=== PATIENT | female | born 1940 | race Caucasian/White ===

== ENCOUNTER → 2016-12-19 | Outpatient (CLI) | payer OTHER | END | disposition home or self-care (01) | LOC: RAD 15:37 | PROVIDERS: ATTEND Family Medicine | DX: Z45.2 Encounter for adjustment and management of vascular access device (principal); L03.116 Cellulitis of left lower limb | CPT/HCPCS: 36569; 76937; 77001; C1751 ==

== ENCOUNTER 2017-05-22 18:27 | Emergency (ER) | payer OTHER ==
[~2017-05-22] VITALS: Ht 167.6 cm; Wt 74.2 kg
[2017-05-22 21:38] VITALS: BP 148/76
== END 2017-05-22 21:41 | disposition home or self-care (01) ==
LOC: ED 21:05
DX: Z45.2 Encounter for adjustment and management of vascular access device (principal)
CPT/HCPCS: 99282

== ENCOUNTER → 2017-05-26 | Outpatient (CLI) | payer OTHER ==
[~2017-05-26] MED LIST: LIDOCAINE 1%, 20ML ONE
== END | disposition home or self-care (01) ==
LOC: RAD 08:17
PROVIDERS: ATTEND Internal Medicine Geriatric Medicine
DX: Z45.2 Encounter for adjustment and management of vascular access device (principal)
CPT/HCPCS: 36589; 77001; J3490

== ENCOUNTER → 2017-09-14 | Outpatient (CLI) | payer OTHER | END | disposition home or self-care (01) | LOC: RAD 14:11 | PROVIDERS: ATTEND Registered Nurse | DX: M48.56XA Collapsed vertebra, not elsewhere classified, lumbar region, initial encounter for fracture (principal); M51.16 Intervertebral disc disorders with radiculopathy, lumbar region; M48.061 Spinal stenosis, lumbar region without neurogenic claudication | CPT/HCPCS: 72110; 72148 ==

== ENCOUNTER 2017-12-21 15:36 | Inpatient (IN) | payer OTHER ==
[~2017-12-21] VITALS: Ht 170.2 cm; Wt 71.5 kg
[~2017-12-21 15:36] MED LIST changes: +ATOR-2 PO; +DOCU100T3 PO; +FA/V1TAB PO; +FURO20TA3 PO; +GABA300C10 PO; +IPRA3AMP NPPB; -LIDOCAINE 1%, 20ML ONE; +OMEG1CAP57 PO; +OMEP-110 PO; +ONDA4TAB10 PO; +OXYC10TA6 PO; +PIOG30TA3 PO; +SUCR1TAB PO
[2017-12-21] MEDS ORDERED: SODIUM CHLORIDE FLUSH 10ML SYR IVF ONE (16:00)
[2017-12-21 16:37] LABS: INTERNATIONAL NORMALIZED RATIO 1.12 (0.93-1.1); PROTHROMBIN TIME 11.5 Seconds (9.6-11.5)
[2017-12-21 16:42] LABS: ALBUMIN 3.1 g/dL (3.4-5.0); ANION GAP 9 mmol/L (5-15); CALCIUM 8.5 mg/dL (8.5-10.1); CHLORIDE 100 mmol/L (98-107); CREATININE 3.24 mg/dL (0.55-1.02)
[2017-12-21 16:46] LABS: MEAN CORPUSCULAR HEMOGLOBIN 26.6 pg (27.0-34.8); MEAN CORPUSCULAR HGB CONC 31.7 g/dL (32.4-35.8); MEAN PLATELET VOLUME 10.2 fL (7.4-10.4); PLATELET COUNT 235 x10^3/uL (130-400); RED BLOOD COUNT 2.59 x10^6/uL (3.82-5.3); RED CELL DISTRIBUTION WIDTH 20.5 % (9.6-15.2)
[2017-12-21 16:47] LABS: ALANINE AMINOTRANSFERASE 16 U/L (12-78); ALKALINE PHOSPHATASE 223 U/L (45-117); BILIRUBIN,TOTAL 0.3 mg/dL (0.2-1.0); TOTAL PROTEIN 7.7 g/dL (6.4-8.2); TROPONIN I 0.058 ng/mL (0.000-0.045)
[2017-12-21 16:55] LABS: HEMOGRAM NOTE RECHECKED
[2017-12-21 17:10] LABS: MD YES
[2017-12-21 17:15] LABS: BASOS#(MANUAL) 0.23 x10^3/uL (0-0.1); BASOS% (MANUAL) 3 % (0-1); EOS#(MANUAL) 2.25 x10^3/uL (0.0-0.4); EOS% (MANUAL) 30 % (1-7); LYMPH#(MANUAL) 0.68 x10^3/uL (1-3.4); LYMPHS% (MANUAL) 9 % (22-44); MONOS% (MANUAL) 4 % (2-9); SEG#(MANUAL) 4.05 x10^3/uL (1.8-6.8); SEGS% (MANUAL) 54 % (42-75)
[2017-12-21 17:19] LABS: HYPOCHROMIA 1+; MICROCYTOSIS 1+; OVALOCYTES 1+; POLYCHROMASIA 1+
[2017-12-21 17:22] LABS: <PLATELET ESTIMATE> ADEQUATE; LARGE PLATELETS 1+
[2017-12-21] MEDS ORDERED: BISACODYL 10 MG SUPP PR PRN (18:00)
[2017-12-21] MEDS ORDERED: ACETAMINOPHEN 325 MG TABLET PO PRN (18:00)
[2017-12-21] MEDS ORDERED: ALBUTEROL/IPRATROPIUM 2.5MG/0.5MG, 3 ML NPPB PRN (18:00)
[2017-12-21] MEDS ORDERED: POLYETHYLENE GLYCOL 17 GM PACKET PO PRN (18:00)
[2017-12-21] MEDS: GABAPENTIN 100 MG CAPSULE PO SCH ×2 (18:00→22:05)
[2017-12-21] MEDS ORDERED: ONDANSETRON ODT 4 MG PO PRN (18:00)
[2017-12-21 19:45] VITALS: BP 94/51
[2017-12-21 20:36] VITALS: BP 76/34
[2017-12-21 20:56] VITALS: BP 95/46
[2017-12-21] MEDS ORDERED: ATORVASTATIN 80 MG TABLET PO SCH (21:00)
[2017-12-21] MEDS ORDERED: FUROSEMIDE 20 MG TABLET PO SCH (21:00)
[2017-12-21] MEDS: SODIUM CHLORIDE FLUSH 10ML SYR IVF SCH (22:05)
[2017-12-21 22:46] LABS: TROPONIN I 0.067 ng/mL (0.000-0.045)
[2017-12-21 23:00] VITALS: BP 103/54
[2017-12-21 23:01] VITALS: BP 94/48
[2017-12-21 23:47] VITALS: BP 111/55
[2017-12-22 00:09] VITALS: BP 107/57
[2017-12-22 01:56] VITALS: BP 121/61
[2017-12-22 02:23] VITALS: BP 107/55
[2017-12-22 05:00] LABS: MEAN CORPUSCULAR HGB CONC 32.9 g/dL (32.4-35.8); MEAN CORPUSCULAR VOLUME 85.1 fL (80-100); MEAN PLATELET VOLUME 10.3 fL (7.4-10.4); PLATELET COUNT 198 x10^3/uL (130-400); RED BLOOD COUNT 3.02 x10^6/uL (3.82-5.3); RED CELL DISTRIBUTION WIDTH 18.8 % (9.6-15.2)
[2017-12-22 05:05] LABS: CALCIUM 8.5 mg/dL (8.5-10.1); CHLORIDE 102 mmol/L (98-107)
[2017-12-22 05:14] LABS: ALANINE AMINOTRANSFERASE 15 U/L (12-78); ALBUMIN 2.9 g/dL (3.4-5.0); ALKALINE PHOSPHATASE 194 U/L (45-117); ANION GAP 9 mmol/L (5-15); BILIRUBIN,TOTAL 0.8 mg/dL (0.2-1.0); CREATININE 4.02 mg/dL (0.55-1.02); TOTAL PROTEIN 7.2 g/dL (6.4-8.2); TROPONIN I 0.069 ng/mL (0.000-0.045)
[2017-12-22 05:48] LABS: MD YES
[2017-12-22 05:50] LABS: EOS% (MANUAL) 40 % (1-7); LYMPH#(MANUAL) 1.44 x10^3/uL (1-3.4); LYMPHS% (MANUAL) 18 % (22-44); MONOS#(MANUAL) 0.24 x10^3/uL (0.3-2.7); MONOS% (MANUAL) 3 % (2-9); SEG#(MANUAL) 3.12 x10^3/uL (1.8-6.8); SEGS% (MANUAL) 39 % (42-75)
[2017-12-22 05:51] LABS: <PLATELET ESTIMATE> ADEQUATE; HYPOCHROMIA 1+; LARGE PLATELETS 1+; OVALOCYTES 1+; POLYCHROMASIA 1+
[2017-12-22 06:51] VITALS: BP 112/58
[2017-12-22] MEDS: GABAPENTIN 100 MG CAPSULE PO SCH ×2 (08:35→15:55)
[2017-12-22] MEDS: SODIUM CHLORIDE FLUSH 10ML SYR IVF SCH (08:35)
[2017-12-22] MEDS ORDERED: SUCRALFATE 1 GM TABLET PO SCH (09:00)
[2017-12-22] MEDS ORDERED: SENNA/DOCUSATE TABLET PO SCH (09:00)
[2017-12-22] MEDS ORDERED: DOCUSATE 100 MG CAPSULE PO SCH (09:00)
[2017-12-22] MEDS ORDERED: OMEGA-3/FISH OIL CAPSULE PO SCH (09:00)
[2017-12-22 12:59] VITALS: BP 137/63
[2017-12-22] MEDS ORDERED: PIOGLITAZONE 15 MG TABLET PO SCH (15:30)
== END 2017-12-22 16:50 | disposition home or self-care (01) | DRG 683 ==
LOC: ED 16:02 → EDIP 17:06 → 4EST 18:41 → DCLOUNGE 12-22 16:35
PROVIDERS: ADMIT Emergency Medicine; ATTEND Emergency Medicine
PROC: 30233N1 Transfusion of Nonautologous Red Blood Cells into Peripheral Vein, Percutaneous Approach (ICD-10-PCS; principal; 2017-12-21)
DX: N18.6 End stage renal disease (principal); D68.69 Other thrombophilia; E11.22 Type 2 diabetes mellitus with diabetic chronic kidney disease; E11.42 Type 2 diabetes mellitus with diabetic polyneuropathy; I95.3 Hypotension of hemodialysis; E44.1 Mild protein-calorie malnutrition; D63.1 Anemia in chronic kidney disease; I50.9 Heart failure, unspecified; E78.5 Hyperlipidemia, unspecified; G89.29 Other chronic pain; I07.1 Rheumatic tricuspid insufficiency; I48.0 Paroxysmal atrial fibrillation; K21.9 Gastro-esophageal reflux disease without esophagitis; Z80.9 Family history of malignant neoplasm, unspecified; Z86.73 Personal history of transient ischemic attack (TIA), and cerebral infarction without residual deficits; Z87.891 Personal history of nicotine dependence; Z99.2 Dependence on renal dialysis; M54.9 Dorsalgia, unspecified; Z79.899 Other long term (current) drug therapy
CPT/HCPCS: 36415; 71045; 80053; 82728; 83036; 83540; 83550; 83735; 83880; 84443; 84484; 85025; 85610; 86850; 86900; 86923; 93005; 99285; P9016

== ENCOUNTER 2018-03-20 13:37 | Inpatient (IN) | payer OTHER ==
[2018-03-20] VITALS (11 sets, daily range): BP systolic 62–121; BP diastolic 32–69
[~2018-03-20] VITALS: Ht 170.2 cm; Wt 87.7 kg
[~2018-03-20 13:37] MED LIST changes: -IPRA3AMP NPPB; +IPRA3AMP30 NPPB; -PIOG30TA3 PO; +PIOG30TA67 PO
[2018-03-20] MEDS ORDERED: ASPIRIN 81 MG TABLET CHEW ONE (14:16)
[2018-03-20] MEDS ORDERED: DILTIAZEM 60 MG TABLET ONE (14:16)
[2018-03-20] MEDS ORDERED: ASPIRIN 81 MG TABLET CHEW PO ONE (14:30)
[2018-03-20] MEDS ORDERED: SODIUM CHLORIDE FLUSH 10ML SYR IVF ONE (14:30)
[2018-03-20] MEDS ORDERED: DILTIAZEM 30 MG TABLET PO ONE (14:30)
[2018-03-20 15:09] LABS: ALANINE AMINOTRANSFERASE 15 U/L (12-78); ALBUMIN 2.9 g/dL (3.4-5.0); ANION GAP 9 mmol/L (5-15); CALCIUM 8.4 mg/dL (8.5-10.1); CHLORIDE 100 mmol/L (98-107); CREATININE 4.54 mg/dL (0.55-1.02)
[2018-03-20 15:10] LABS: MEAN CORPUSCULAR HEMOGLOBIN 25.2 pg (27.0-34.8); MEAN CORPUSCULAR HGB CONC 30.7 g/dL (32.4-35.8); MEAN CORPUSCULAR VOLUME 82.2 fL (80-100); MEAN PLATELET VOLUME 10.7 fL (7.4-10.4); PLATELET COUNT 238 x10^3/uL (130-400); RED BLOOD COUNT 2.74 x10^6/uL (3.82-5.3); RED CELL DISTRIBUTION WIDTH 19.3 % (9.6-15.2)
[2018-03-20 15:12] LABS: INTERNATIONAL NORMALIZED RATIO 1.13 (0.93-1.1); PROTHROMBIN TIME 11.7 Seconds (9.6-11.5)
[2018-03-20 15:13] LABS: ALKALINE PHOSPHATASE 221 U/L (45-117); BILIRUBIN,TOTAL 0.4 mg/dL (0.2-1.0); TOTAL PROTEIN 7.8 g/dL (6.4-8.2); TROPONIN I < 0.015 ng/mL (0.000-0.045)
[2018-03-20] MEDS ORDERED: SODIUM CHLORIDE 0.9%, 500ML IVBOLUS ONE (15:30)
[2018-03-20 15:36] LABS: MD YES
[2018-03-20 15:43] LABS: BAND#(MANUAL) 0.17 x10^3/uL; BANDS%(MANUAL) 2 % (0-7); BASOS#(MANUAL) 0.25 x10^3/uL (0-0.1); BASOS% (MANUAL) 3 % (0-1); EOS#(MANUAL) 2.91 x10^3/uL (0.0-0.4); EOS% (MANUAL) 35 % (1-7); LYMPH#(MANUAL) 1.16 x10^3/uL (1-3.4); LYMPHS% (MANUAL) 14 % (22-44); MONOS#(MANUAL) 0.33 x10^3/uL (0.3-2.7); MONOS% (MANUAL) 4 % (2-9); SEG#(MANUAL) 3.49 x10^3/uL (1.8-6.8); SEGS% (MANUAL) 42 % (42-75)
[2018-03-20 15:44] LABS: ANISOCYTOSIS 1+; HYPOCHROMIA 1+; MICROCYTOSIS 1+; POLYCHROMASIA 1+
[2018-03-20 15:45] LABS: <PLATELET ESTIMATE> ADEQUATE; OVALOCYTES 1+
[2018-03-20 15:46] LABS: LARGE PLATELETS 1+
[2018-03-20] MEDS ORDERED: FUROSEMIDE 20 MG/2 ML IV ONE (16:00)
[2018-03-20] MEDS ORDERED: gabapentin PO (16:18)
[2018-03-20] MEDS ORDERED: ATOR-2 PO (16:18)
[2018-03-20] MEDS ORDERED: [UNRECOGNIZED DRUG - OTHER] (16:19)
[2018-03-20] MEDS ORDERED: TRAZODONE 50MG TABLET PO PRN (16:30)
[2018-03-20] MEDS ORDERED: DIGOXIN 0.125 MG TABLET PO ONE (16:30)
[2018-03-20] MEDS ORDERED: LABETALOL 5MG/ML, 20ML IVPush PRN (16:30)
[2018-03-20] MEDS ORDERED: ONDANSETRON 2MG/ML, 2ML IVPush PRN (16:30)
[2018-03-20] MEDS ORDERED: ONDANSETRON ODT 4 MG PO PRN (16:30)
[2018-03-20] MEDS ORDERED: ACETAMINOPHEN 325 MG TABLET PO PRN (16:30)
[2018-03-20] MEDS ORDERED: DOCUSATE 100 MG CAPSULE PO PRN (16:30)
[2018-03-20] MEDS ORDERED: ALBUTEROL/IPRATROPIUM 2.5MG/0.5MG, 3 ML NPPB PRN ×2 (16:30→18:30)
[2018-03-20 17:21] LABS: HCT (SEDRATE) 20.6 % (34.6-47.8)
[2018-03-20] MEDS ORDERED: FUROSEMIDE 20 MG/2 ML ONE (17:32)
[2018-03-20 18:18] LABS: FREE T4 (FREE THYROXINE) 1.08 ng/dL (0.76-1.46); THYROID STIMULATING HORMONE 1.53 mIU/L (0.358-3.740)
[2018-03-20] MEDS ORDERED: OXYcodone IR 5MG TABLET PO PRN (18:30)
[2018-03-20] MEDS: HEPARIN 5,000 UNITS/ML, 1ML SQ SCH (19:56)
[2018-03-20] MEDS ORDERED: FUROSEMIDE 20 MG TABLET PO SCH (21:00)
[2018-03-20] MEDS: INSULIN LISPRO 100 UNITS/ML, PEN SQ-INSULIN SCH (21:00)
[2018-03-20] MEDS ORDERED: ATORVASTATIN 80 MG TABLET PO SCH (21:00)
[2018-03-20] MEDS: GABAPENTIN 100 MG CAPSULE PO SCH (22:23)
[2018-03-21 00:52] VITALS: BP 93/55
[2018-03-21 02:00] VITALS: BP 85/44
[2018-03-21 02:02] VITALS: BP 90/36
[2018-03-21] MEDS ORDERED: CALCIUM CARBONATE 500 MG TAB.CHEW PO PRN (03:00)
[2018-03-21 05:45] LABS: CHLORIDE 102 mmol/L (98-107)
[2018-03-21 05:52] LABS: ANION GAP 7 mmol/L (5-15); CALCIUM 8.3 mg/dL (8.5-10.1); CREATININE 5.11 mg/dL (0.55-1.02)
[2018-03-21] MEDS: HEPARIN 5,000 UNITS/ML, 1ML SQ SCH ×2 (05:57→12:00)
[2018-03-21 06:05] VITALS: BP 97/55
[2018-03-21 06:30] LABS: MD YES
[2018-03-21 06:31] LABS: MEAN CORPUSCULAR HEMOGLOBIN 28.6 pg (27.0-34.8); MEAN CORPUSCULAR HGB CONC 33.7 g/dL (32.4-35.8); MEAN CORPUSCULAR VOLUME 84.7 fL (80-100); MEAN PLATELET VOLUME 11.1 fL (7.4-10.4); PLATELET COUNT 230 x10^3/uL (130-400); RED BLOOD COUNT 2.99 x10^6/uL (3.82-5.3); RED CELL DISTRIBUTION WIDTH 17.2 % (9.6-15.2)
[2018-03-21 06:36] LABS: BASOS#(MANUAL) 0.36 x10^3/uL (0-0.1); BASOS% (MANUAL) 4 % (0-1); EOS#(MANUAL) 3.78 x10^3/uL (0.0-0.4); EOS% (MANUAL) 42 % (1-7); MONOS#(MANUAL) 0.36 x10^3/uL (0.3-2.7); MONOS% (MANUAL) 4 % (2-9); SEGS% (MANUAL) 50 % (42-75)
[2018-03-21 06:37] LABS: <PLATELET ESTIMATE> ADEQUATE; <PLT MORPHOLOGY> NORMAL PLT MORPH; ANISOCYTOSIS 2+; HYPOCHROMIA 1+; MICROCYTOSIS 1+
[2018-03-21] MEDS: INSULIN LISPRO 100 UNITS/ML, PEN SQ-INSULIN SCH ×2 (07:00→11:00)
[2018-03-21 07:17] VITALS: BP 88/35
[2018-03-21 08:18] LABS: % IRON SATURATION 72 % (20-55); IRON LEVEL 157 mcg/dL (50-170); TOTAL IRON BINDING CAPACITY 219 mcg/dL (250-450)
[2018-03-21] MEDS ORDERED: OMEPRAZOLE 20 MG CAPSULE.DR PO SCH (09:00)
[2018-03-21] MEDS ORDERED: DOCUSATE 100 MG CAPSULE PO SCH (09:00)
[2018-03-21] MEDS ORDERED: OMEGA-3/FISH OIL CAPSULE PO SCH (09:00)
[2018-03-21] MEDS ORDERED: PIOGLITAZONE 15 MG TABLET PO SCH (09:00)
[2018-03-21] MEDS ORDERED: MIDODRINE 5 MG TABLET PO SCH (10:00)
[2018-03-21] MEDS: GABAPENTIN 100 MG CAPSULE PO SCH (10:10)
== END 2018-03-21 17:17 | disposition home or self-care (01) | DRG 291 ==
LOC: ED 15:50 → EDIP 17:06 → 4WST 18:08
PROVIDERS: ADMIT Hospitalist; ATTEND Hospitalist
PROC: 30233N1 Transfusion of Nonautologous Red Blood Cells into Peripheral Vein, Percutaneous Approach (ICD-10-PCS; principal; 2018-03-20)
DX: I50.33 Acute on chronic diastolic (congestive) heart failure (principal); N18.6 End stage renal disease; E11.42 Type 2 diabetes mellitus with diabetic polyneuropathy; D50.0 Iron deficiency anemia secondary to blood loss (chronic); E11.22 Type 2 diabetes mellitus with diabetic chronic kidney disease; D63.1 Anemia in chronic kidney disease; E11.69 Type 2 diabetes mellitus with other specified complication; E78.5 Hyperlipidemia, unspecified; I48.2 Chronic atrial fibrillation; J44.9 Chronic obstructive pulmonary disease, unspecified; K21.9 Gastro-esophageal reflux disease without esophagitis; Z79.4 Long term (current) use of insulin; Z86.73 Personal history of transient ischemic attack (TIA), and cerebral infarction without residual deficits; Z99.2 Dependence on renal dialysis; G89.29 Other chronic pain; I95.89 Other hypotension; Z88.6 Allergy status to analgesic agent; Z88.8 Allergy status to other drugs, medicaments and biological substances
CPT/HCPCS: 36415; 36430; 71045; 80048; 80053; 82140; 82962; 83540; 83550; 83880; 84439; 84443; 84484; 85014; 85018; 85025; 85610; 85651; 86850; 86900; 86923; 93005; 93306; 99285; J1644; J7040; P9016

== ENCOUNTER 2018-04-23 08:34 | Inpatient (IN) | payer OTHER ==
[2018-04-23] VITALS (11 sets, daily range): BP systolic 73–125; BP diastolic 38–63
[~2018-04-23] VITALS: Ht 170.2 cm; Wt 80.5 kg
[~2018-04-23 08:34] MED LIST changes: +ASPI-621 PO; +ERGO500017 PO; +GABA100C PO; +MIDO10TA PO; +[UNRECOGNIZED DRUG - OTHER]; +gabapentin PO
[2018-04-23] MEDS ORDERED: SODIUM CHLORIDE 0.9% 1,000ML IVBOLUS ONE (09:30)
[2018-04-23 09:35] LABS: ALANINE AMINOTRANSFERASE 16 U/L (12-78); ALBUMIN 2.8 g/dL (3.4-5.0); ANION GAP 12 mmol/L (5-15); CALCIUM 8.4 mg/dL (8.5-10.1); CHLORIDE 100 mmol/L (98-107); CREATININE 5.95 mg/dL (0.55-1.02)
[2018-04-23 09:37] LABS: ALKALINE PHOSPHATASE 183 U/L (45-117); BILIRUBIN,TOTAL 0.4 mg/dL (0.2-1.0); TOTAL PROTEIN 6.8 g/dL (6.4-8.2)
[2018-04-23 09:40] LABS: MEAN CORPUSCULAR HEMOGLOBIN 28.1 pg (27.0-34.8); MEAN CORPUSCULAR HGB CONC 31.8 g/dL (32.4-35.8); MEAN CORPUSCULAR VOLUME 88.5 fL (80-100); MEAN PLATELET VOLUME 11.2 fL (7.4-10.4); PLATELET COUNT 218 x10^3/uL (130-400); RED CELL DISTRIBUTION WIDTH 20.9 % (9.6-15.2)
[2018-04-23 09:44] LABS: HEMOGRAM NOTE RECHECKED
[2018-04-23] MEDS ORDERED: SODIUM CHLORIDE FLUSH 10ML SYR IVF ONE (10:00)
[2018-04-23] MEDS ORDERED: ONDANSETRON 2MG/ML, 2ML IVPush PRN (11:30)
[2018-04-23] MEDS ORDERED: ALBUTEROL/IPRATROPIUM 2.5MG/0.5MG, 3 ML NPPB PRN (11:30)
[2018-04-23] MEDS ORDERED: ACETAMINOPHEN 325 MG TABLET PO PRN (11:30)
[2018-04-23] MEDS ORDERED: MIDODRINE HCL 10 MG PO SCH (11:30)
[2018-04-23] MEDS ORDERED: ERGOCALCIFEROL 50,000 UNIT CAPSULE PO SCH (11:30)
[2018-04-23] MEDS ORDERED: DOCUSATE 100 MG CAPSULE PO PRN (11:30)
[2018-04-23] MEDS ORDERED: ONDANSETRON ODT 4 MG PO PRN (11:30)
[2018-04-23] MEDS ORDERED: hydrALAzine 20 MG/ML, 1ML IVPush PRN (11:30)
[2018-04-23] MEDS ORDERED: BISACODYL 10 MG SUPP PR PRN (11:30)
[2018-04-23 11:46] LABS: MD MORPH REVIEW ONLY
[2018-04-23 11:48] LABS: ANISOCYTOSIS 2+; BASOPHILS # (AUTO) 0.11 x10^3/uL (0-0.1); BASOPHILS % (AUTO) 2 % (0-1); EOSINOPHILS # (AUTO) 0.27 x10^3/uL (0-0.4); EOSINOPHILS % (AUTO) 4 % (1-7); HYPOCHROMIA 1+; LYMPHOCYTES # (AUTO) 0.69 x10^3/uL (1-3.4); LYMPHOCYTES % (AUTO) 10 % (22-44); MONOCYTES # (AUTO) 0.38 x10^3/uL (0.2-0.8); MONOCYTES % (AUTO) 6 % (2-9); NEUTROPHILS # (AUTO) 5.59 x10^3/uL (1.8-6.8); NEUTROPHILS % (AUTO) 80 % (42-75)
[2018-04-23 11:49] LABS: OVALOCYTES 1+; POLYCHROMASIA 1+
[2018-04-23 11:50] LABS: <PLATELET ESTIMATE> ADEQUATE; GIANT PLATELETS 1+; LARGE PLATELETS 1+
[2018-04-23] MEDS ORDERED: MIDODRINE 5 MG TABLET PO STA (12:59)
[2018-04-23 16:19] LABS: HEMOGRAM NOTE RECHECKED
[2018-04-23] MEDS ORDERED: ARANESP 100 MCG/ML **ESRD SQ SCH (18:00)
[2018-04-23] MEDS: GABAPENTIN 100 MG CAPSULE PO SCH ×2 (18:47→21:36)
[2018-04-23 19:30] LABS: HEMOGRAM NOTE RECHECKED
[2018-04-23] MEDS: ATORVASTATIN 80 MG TABLET PO SCH (21:36)
[2018-04-24 00:15] VITALS: BP 102/62
[2018-04-24 01:33] VITALS: BP 95/61
[2018-04-24 02:41] LABS: MEAN CORPUSCULAR HEMOGLOBIN 28.5 pg (27.0-34.8); MEAN CORPUSCULAR HGB CONC 32.6 g/dL (32.4-35.8); MEAN CORPUSCULAR VOLUME 87.4 fL (80-100); PLATELET COUNT 233 x10^3/uL (130-400); RED BLOOD COUNT 2.55 x10^6/uL (3.82-5.3); RED CELL DISTRIBUTION WIDTH 16.9 % (9.6-15.2)
[2018-04-24 02:45] LABS: ANION GAP 4 mmol/L (5-15); CALCIUM 8.2 mg/dL (8.5-10.1); CHLORIDE 102 mmol/L (98-107); CREATININE 3.92 mg/dL (0.55-1.02)
[2018-04-24 03:23] LABS: BASOPHILS # (AUTO) 0.13 x10^3/uL (0-0.1); BASOPHILS % (AUTO) 2 % (0-1); EOSINOPHILS # (AUTO) 1.65 x10^3/uL (0-0.4); EOSINOPHILS % (AUTO) 20 % (1-7); LYMPHOCYTES # (AUTO) 1.12 x10^3/uL (1-3.4); LYMPHOCYTES % (AUTO) 14 % (22-44); MD SCAN; MONOCYTES # (AUTO) 0.62 x10^3/uL (0.2-0.8); MONOCYTES % (AUTO) 8 % (2-9); NEUTROPHILS # (AUTO) 4.83 x10^3/uL (1.8-6.8); NEUTROPHILS % (AUTO) 58 % (42-75)
[2018-04-24 08:00] VITALS: BP 95/44
[2018-04-24] MEDS ORDERED: AQUAPHOR TP SCH (09:00)
[2018-04-24] MEDS ORDERED: SUCRALFATE TP SCH (09:00)
[2018-04-24] MEDS: MIDODRINE 5 MG TABLET PO SCH ×3 (09:51→20:38)
[2018-04-24] MEDS: DOCUSATE 100 MG CAPSULE PO SCH (09:51)
[2018-04-24] MEDS: GABAPENTIN 100 MG CAPSULE PO SCH ×3 (09:51→20:38)
[2018-04-24] MEDS: OMEPRAZOLE 20 MG CAPSULE.DR PO SCH (09:51)
[2018-04-24] MEDS: OMEGA-3/FISH OIL CAPSULE PO SCH (09:51)
[2018-04-24] MEDS: SENNA/DOCUSATE TABLET PO SCH (09:52)
[2018-04-24] MEDS: SUCRALFATE 1 GM/10 ML UDC PO SCH (12:36)
[2018-04-24 14:43] VITALS: BP 90/56
[2018-04-24 19:30] VITALS: BP 104/61
[2018-04-24] MEDS: ATORVASTATIN 80 MG TABLET PO SCH (20:38)
[2018-04-25 01:51] VITALS: BP 102/60
[2018-04-25 07:05] VITALS: BP 90/55
[2018-04-25] MEDS: SENNA/DOCUSATE TABLET PO SCH (09:00)
[2018-04-25] MEDS: DOCUSATE 100 MG CAPSULE PO SCH (09:04)
[2018-04-25] MEDS: OMEGA-3/FISH OIL CAPSULE PO SCH (09:04)
[2018-04-25] MEDS: OMEPRAZOLE 20 MG CAPSULE.DR PO SCH (09:04)
[2018-04-25] MEDS: MIDODRINE 5 MG TABLET PO SCH ×3 (09:05→21:03)
[2018-04-25] MEDS: SUCRALFATE 1 GM/10 ML UDC PO SCH (09:06)
[2018-04-25] MEDS: GABAPENTIN 100 MG CAPSULE PO SCH ×3 (09:09→21:04)
[2018-04-25 12:15] VITALS: BP 108/60
[2018-04-25] MEDS: SEVELAMER CARBONATE 800MG TAB PO SCH ×2 (12:22→18:01)
[2018-04-25 13:01] LABS: % IRON SATURATION 9 % (20-55); IRON LEVEL 25 mcg/dL (50-170); TOTAL IRON BINDING CAPACITY 284 mcg/dL (250-450)
[2018-04-25 13:05] LABS: MEAN CORPUSCULAR HEMOGLOBIN 29.8 pg (27.0-34.8); MEAN CORPUSCULAR HGB CONC 33.1 g/dL (32.4-35.8); MEAN PLATELET VOLUME 10.1 fL (7.4-10.4); PLATELET COUNT 266 x10^3/uL (130-400); RED BLOOD COUNT 2.67 x10^6/uL (3.82-5.3); RED CELL DISTRIBUTION WIDTH 18.2 % (9.6-15.2)
[2018-04-25 13:18] LABS: MD YES
[2018-04-25 13:19] LABS: BASOS% (MANUAL) 1 % (0-1); EOS#(MANUAL) 2.86 x10^3/uL (0.0-0.4); EOS% (MANUAL) 28 % (1-7); LYMPH#(MANUAL) 0.71 x10^3/uL (1-3.4); LYMPHS% (MANUAL) 7 % (22-44); MONOS#(MANUAL) 0.82 x10^3/uL (0.3-2.7); MONOS% (MANUAL) 8 % (2-9); SEG#(MANUAL) 5.71 x10^3/uL (1.8-6.8); SEGS% (MANUAL) 56 % (42-75)
[2018-04-25 13:20] LABS: ANISOCYTOSIS 1+
[2018-04-25 13:21] LABS: <PLATELET ESTIMATE> ADEQUATE; LARGE PLATELETS 1+; POLYCHROMASIA 1+
[2018-04-25 13:31] LABS: ABSOLUTE RETICS # 0.098 x10^6/uL (0.5-2.5); RED BLOOD COUNT 2.67 x10^6/uL (3.82-5.3); RETICULOCYTE COUNT % 3.67 % (0.5-1.5)
[2018-04-25 13:49] LABS: HEMOGLOBIN A1C 4.6 % (4.2-6.3)
[2018-04-25] MEDS: INSULIN LISPRO 100 UNITS/ML, PEN SQ-INSULIN SCH ×3 (14:53→21:04)
[2018-04-25 19:31] VITALS: BP 100/58
[2018-04-25] MEDS: ATORVASTATIN 80 MG TABLET PO SCH (21:03)
[2018-04-26 00:55] VITALS: BP 96/54
[2018-04-26 06:52] VITALS: BP 102/56
[2018-04-26] MEDS: INSULIN LISPRO 100 UNITS/ML, PEN SQ-INSULIN SCH ×4 (07:00→20:24)
[2018-04-26 07:02] LABS: ANION GAP 6 mmol/L (5-15); CALCIUM 8.1 mg/dL (8.5-10.1); CHLORIDE 102 mmol/L (98-107); CREATININE 7.05 mg/dL (0.55-1.02)
[2018-04-26] MEDS ORDERED: MIDODRINE 5 MG TABLET PO ONE (07:30)
[2018-04-26] MEDS: MIDODRINE 5 MG TABLET PO SCH ×3 (07:37→20:02)
[2018-04-26] MEDS: SUCRALFATE 1 GM/10 ML UDC PO SCH (09:18)
[2018-04-26] MEDS: DOCUSATE 100 MG CAPSULE PO SCH (09:18)
[2018-04-26] MEDS: OMEPRAZOLE 20 MG CAPSULE.DR PO SCH (09:18)
[2018-04-26] MEDS: GABAPENTIN 100 MG CAPSULE PO SCH ×3 (09:18→20:02)
[2018-04-26] MEDS: SENNA/DOCUSATE TABLET PO SCH (09:18)
[2018-04-26] MEDS: OMEGA-3/FISH OIL CAPSULE PO SCH (09:18)
[2018-04-26] MEDS: SEVELAMER CARBONATE 800MG TAB PO SCH ×3 (09:20→17:23)
[2018-04-26 12:54] VITALS: BP 94/53
[2018-04-26 13:06] LABS: OCCULT BLOOD POSITIVE (NEGATIVE)
[2018-04-26 18:32] VITALS: BP 120/63
[2018-04-26] MEDS: ATORVASTATIN 80 MG TABLET PO SCH (20:01)
[2018-04-27] VITALS (9 sets, daily range): BP systolic 91–130; BP diastolic 54–71
[2018-04-27 05:52] LABS: CHLORIDE 102 mmol/L (98-107)
[2018-04-27 06:06] LABS: ALBUMIN 2.5 g/dL (3.4-5.0); ANION GAP 8 mmol/L (5-15); CALCIUM 8.2 mg/dL (8.5-10.1); CREATININE 4.91 mg/dL (0.55-1.02)
[2018-04-27] MEDS: INSULIN LISPRO 100 UNITS/ML, PEN SQ-INSULIN SCH ×4 (07:00→21:27)
[2018-04-27] MEDS: SENNA/DOCUSATE TABLET PO SCH (09:00)
[2018-04-27] MEDS: GABAPENTIN 100 MG CAPSULE PO SCH ×3 (09:08→21:26)
[2018-04-27] MEDS: DOCUSATE 100 MG CAPSULE PO SCH (09:08)
[2018-04-27] MEDS: OMEPRAZOLE 20 MG CAPSULE.DR PO SCH (09:08)
[2018-04-27] MEDS: SUCRALFATE 1 GM/10 ML UDC PO SCH (09:08)
[2018-04-27] MEDS: MIDODRINE 5 MG TABLET PO SCH ×3 (09:09→21:27)
[2018-04-27] MEDS: SEVELAMER CARBONATE 800MG TAB PO SCH ×3 (09:09→17:33)
[2018-04-27] MEDS: OMEGA-3/FISH OIL CAPSULE PO SCH (09:09)
[2018-04-27 15:29] LABS: CULTURE INDICATED? YES; MICROSCOPIC INDICATED
[2018-04-27] MEDS: ATORVASTATIN 80 MG TABLET PO SCH (21:26)
[2018-04-28 01:11] VITALS: BP 126/54
[2018-04-28 06:30] VITALS: BP 99/56
[2018-04-28] MEDS: INSULIN LISPRO 100 UNITS/ML, PEN SQ-INSULIN SCH ×4 (07:49→21:00)
[2018-04-28] MEDS: MIDODRINE 5 MG TABLET PO SCH ×3 (08:09→21:04)
[2018-04-28] MEDS: SENNA/DOCUSATE TABLET PO SCH (08:09)
[2018-04-28] MEDS: SUCRALFATE 1 GM/10 ML UDC PO SCH (08:09)
[2018-04-28] MEDS: GABAPENTIN 100 MG CAPSULE PO SCH ×3 (08:09→21:03)
[2018-04-28] MEDS: SEVELAMER CARBONATE 800MG TAB PO SCH ×3 (08:09→17:19)
[2018-04-28] MEDS: OMEGA-3/FISH OIL CAPSULE PO SCH (08:09)
[2018-04-28] MEDS: OMEPRAZOLE 20 MG CAPSULE.DR PO SCH (08:09)
[2018-04-28] MEDS: DOCUSATE 100 MG CAPSULE PO SCH (08:10)
[2018-04-28 12:05] VITALS: BP 120/54
[2018-04-28 20:28] VITALS: BP 120/69
[2018-04-28] MEDS: ATORVASTATIN 80 MG TABLET PO SCH (21:04)
[2018-04-29 02:23] VITALS: BP 114/66
[2018-04-29] MEDS: INSULIN LISPRO 100 UNITS/ML, PEN SQ-INSULIN SCH ×4 (07:00→22:22)
[2018-04-29] MEDS: OMEGA-3/FISH OIL CAPSULE PO SCH (09:22)
[2018-04-29] MEDS: GABAPENTIN 100 MG CAPSULE PO SCH ×3 (09:22→22:23)
[2018-04-29] MEDS: OMEPRAZOLE 20 MG CAPSULE.DR PO SCH (09:23)
[2018-04-29] MEDS: SUCRALFATE 1 GM/10 ML UDC PO SCH (09:23)
[2018-04-29] MEDS: SEVELAMER CARBONATE 800MG TAB PO SCH ×3 (09:23→19:12)
[2018-04-29] MEDS: MIDODRINE 5 MG TABLET PO SCH ×3 (09:23→22:23)
[2018-04-29] MEDS: DOCUSATE 100 MG CAPSULE PO SCH (09:23)
[2018-04-29] MEDS: SENNA/DOCUSATE TABLET PO SCH (09:24)
[2018-04-29 10:25] VITALS: BP 152/77
[2018-04-29 14:41] VITALS: BP 131/70
[2018-04-29] MEDS ORDERED: SEVE800T8 PO (17:16)
[2018-04-29] MEDS ORDERED: MIDO10TA PO (17:16)
[2018-04-29] MEDS ORDERED: CEFD300C37 PO (17:16)
[2018-04-29] MEDS: ATORVASTATIN 80 MG TABLET PO SCH (22:23)
[2018-04-29 22:26] VITALS: BP 100/47
[2018-04-30 02:34] VITALS: BP 102/47
[2018-04-30 06:48] VITALS: BP 117/70
[2018-04-30] MEDS: INSULIN LISPRO 100 UNITS/ML, PEN SQ-INSULIN SCH ×2 (08:21→11:30)
[2018-04-30] MEDS: SUCRALFATE 1 GM/10 ML UDC PO SCH (08:22)
[2018-04-30] MEDS: SEVELAMER CARBONATE 800MG TAB PO SCH (08:22)
[2018-04-30] MEDS: OMEGA-3/FISH OIL CAPSULE PO SCH (08:23)
[2018-04-30] MEDS: SENNA/DOCUSATE TABLET PO SCH (08:23)
[2018-04-30] MEDS: DOCUSATE 100 MG CAPSULE PO SCH (08:23)
[2018-04-30] MEDS: OMEPRAZOLE 20 MG CAPSULE.DR PO SCH (08:23)
[2018-04-30] MEDS: GABAPENTIN 100 MG CAPSULE PO SCH (08:23)
[2018-04-30] MEDS: MIDODRINE 5 MG TABLET PO SCH (08:23)
== END 2018-04-30 13:46 | disposition home health service (06) | DRG 314 ==
LOC: ED 10:14 → EDIP 10:15 → ED 10:39 → 4WST 12:24
PROVIDERS: ADMIT Internal Medicine; ATTEND Internal Medicine
PROC: 30233N1 Transfusion of Nonautologous Red Blood Cells into Peripheral Vein, Percutaneous Approach (ICD-10-PCS; principal; 2018-04-23)
PROC: 5A1D70Z Performance of Urinary Filtration, Intermittent, Less than 6 Hours Per Day (ICD-10-PCS; 2018-04-23)
PROC: 5A1D70Z Performance of Urinary Filtration, Intermittent, Less than 6 Hours Per Day (ICD-10-PCS; 2018-04-26)
PROC: 0T9B70Z Drainage of Bladder with Drainage Device, Via Natural or Artificial Opening (ICD-10-PCS; 2018-04-27)
PROC: 5A1D70Z Performance of Urinary Filtration, Intermittent, Less than 6 Hours Per Day (ICD-10-PCS; 2018-04-28)
PROC: 5A1D70Z Performance of Urinary Filtration, Intermittent, Less than 6 Hours Per Day (ICD-10-PCS; 2018-04-30)
DX: I95.0 Idiopathic hypotension (principal); N18.6 End stage renal disease; J96.21 Acute and chronic respiratory failure with hypoxia; E43 Unspecified severe protein-calorie malnutrition; I13.2 Hypertensive heart and chronic kidney disease with heart failure and with stage 5 chronic kidney disease, or end stage renal disease; I50.32 Chronic diastolic (congestive) heart failure; D62 Acute posthemorrhagic anemia; E87.3 Alkalosis; N39.0 Urinary tract infection, site not specified; I25.10 Atherosclerotic heart disease of native coronary artery without angina pectoris; D63.1 Anemia in chronic kidney disease; J44.9 Chronic obstructive pulmonary disease, unspecified; Z99.81 Dependence on supplemental oxygen; N25.0 Renal osteodystrophy; E78.5 Hyperlipidemia, unspecified; K21.9 Gastro-esophageal reflux disease without esophagitis; Z66 Do not resuscitate; I48.0 Paroxysmal atrial fibrillation; M54.9 Dorsalgia, unspecified; G89.29 Other chronic pain; E11.42 Type 2 diabetes mellitus with diabetic polyneuropathy; E11.22 Type 2 diabetes mellitus with diabetic chronic kidney disease; E11.65 Type 2 diabetes mellitus with hyperglycemia; R19.5 Other fecal abnormalities; B95.4 Other streptococcus as the cause of diseases classified elsewhere; Z99.2 Dependence on renal dialysis; Z86.73 Personal history of transient ischemic attack (TIA), and cerebral infarction without residual deficits; Z87.891 Personal history of nicotine dependence; Z88.5 Allergy status to narcotic agent; Z88.8 Allergy status to other drugs, medicaments and biological substances
CPT/HCPCS: 36415; 36430; 71045; 80048; 80053; 80069; 81001; 82272; 82962; 83010; 83036; 83540; 83550; 83615; 83735; 84100; 85014; 85018; 85025; 85045; 86850; 86900; 86923; 87040; 87077; 87086; 93005; 99285; G0378; J0882; J1815; J7030; P9016

== ENCOUNTER → 2018-05-10 | Outpatient (CLI) | payer OTHER ==
[~2018-05-10] MED LIST changes: +CEFD300C37 PO; +SEVE800T8 PO
== END | disposition home or self-care (01) ==
LOC: CVU 16:14
PROVIDERS: ATTEND Internal Medicine Cardiovascular Disease
DX: I65.23 Occlusion and stenosis of bilateral carotid arteries (principal); E11.9 Type 2 diabetes mellitus without complications; I48.91 Unspecified atrial fibrillation; I95.9 Hypotension, unspecified; Z87.891 Personal history of nicotine dependence
CPT/HCPCS: 93880

== ENCOUNTER 2019-09-26 13:45 | Inpatient (IN) | payer MEDICARE ==
[~2019-09-26] VITALS: Ht 170.2 cm; Wt 90.5 kg
[~2019-09-26 13:45] MED LIST changes: +ALBU2.5V NPPB; -ASPI-621 PO; +ASPI81TA45 PO; +ATROPINE SYRINGE 0.1 MG/ML, 10ML ONE; +CALCIUM CHLORIDE 13.6 MEQ/10 ML ONE; +FLUT1DIS3 INH; +GUAI600T31 PO; +LINE600T12 PO; +MAGNESIUM SULFATE 8 MEQ/2 ML, 2ML ONE; +METO25TA35 PO; +MIDAZOLAM 1 MG/ML, 5ML ONE; +POLY17PO5 NG; +PRED10TA PO; +PROPOFOL 10 MG/ML, 100ML IV ONE; +SODIUM BICARB 8.4%, 50ML SYRINGE ONE; +TIOT18CA INH
[2019-09-26 14:30] LABS: CHLORIDE 92 mmol/L (98-107)
[2019-09-26 14:35] LABS: ALBUMIN 2.7 g/dL (3.4-5.0); ANION GAP 10 mmol/L (5-15); CREATININE 9.94 mg/dL (0.55-1.02)
[2019-09-26 14:35] LABS: RAPID INFLUENZA A Negative (Negative); RAPID INFLUENZA B Negative (Negative)
[2019-09-26 14:52] LABS: MEAN CORPUSCULAR HEMOGLOBIN 27.8 pg (27.0-34.8); MEAN CORPUSCULAR HGB CONC 32.2 g/dL (32.4-35.8); MEAN CORPUSCULAR VOLUME 86.6 fL (80-100); MEAN PLATELET VOLUME 11.2 fL (7.4-10.4); PLATELET COUNT 306 x10^3/uL (130-400); RED CELL DISTRIBUTION WIDTH 15.7 % (9.6-15.2)
[2019-09-26] MEDS ORDERED: CEFTRIAXONE PMX 1GM/50ML 50 ML IVPB ONE (15:00)
[2019-09-26] MEDS ORDERED: AZITHROMYCIN 500 MG in SODIUM CHLORIDE 0.9% 250 ML IVPB ONE (15:00)
--- NOTE | 2019-09-26 15:00 | NUR ---
pt upright on gurney awake & comfortable, responds approp to staff, NAD with suppl O2 in place, comfort measures provided, call light within reach.
[2019-09-26] MEDS ORDERED: CEFTRIAXONE PMX 1GM/50ML 50 ML ONE (15:05)
[2019-09-26 15:12] LABS: MD YES
[2019-09-26] MEDS ORDERED: SODIUM CHLORIDE FLUSH 10ML SYR IVF PRN (15:30)
[2019-09-26 15:59] LABS: BAND#(MANUAL) 0.58 x10^3/uL; BANDS%(MANUAL) 4 % (0-7); BASOS#(MANUAL) 0.15 x10^3/uL (0-0.1); BASOS% (MANUAL) 1 % (0-1); LYMPH#(MANUAL) 0.87 x10^3/uL (1-3.4); LYMPHS% (MANUAL) 6 % (22-44); MONOS#(MANUAL) 1.31 x10^3/uL (0.3-2.7); MONOS% (MANUAL) 9 % (2-9); SEGS% (MANUAL) 80 % (42-75)
[2019-09-26 16:00] LABS: <PLATELET ESTIMATE> ADEQUATE; ANISOCYTOSIS 1+; HYPOCHROMIA 1+; LARGE PLATELETS 1+
--- NOTE | 2019-09-26 16:01 | NUR ---
PT UPRIGHT ON GURNEY AWAKE & COMFORTABLE, RESPONDS APPROP TO STAFF, NAD WITH SUPPL O2 IN PLACE, COMFORT MEASURES PROVIDED, CALL LIGHT WITHIN REACH.
--- NOTE | 2019-09-26 16:16 | NUR ---
Pt to be admitted to [facility], room 486-2. Report called to Luzma.
[2019-09-26] MEDS ORDERED: CODE BLUE RESPONSE XX ONE ×2 (16:40→17:30)
[2019-09-26] MEDS ORDERED: ALBUTEROL SULFATE 2.5 MG/3 ML ONE (16:40)
[2019-09-26] MEDS ORDERED: PROPOFOL 100 ML IV PRN (16:50)
--- NOTE | 2019-09-26 16:53 | NUR ---
REPORT GIVEN TO NATALIA SOLIS TRANSFERRED TO TR03 VIA [facility].
--- NOTE | 2019-09-26 16:58 | NUR ---
WILL (ALEXIA) GIVEN UPDATE ON PT CONDITION & WILL BE IN TO SEE PT. Addendum: 09/26/19 at 1702 by BARBI WILL (ALEXIA [phone]) GIVEN UPDATE ON PT CONDITION & WILL BE IN TO SEE PT.
[2019-09-26] MEDS ORDERED: MIDAZOLAM 1 MG/ML, 2ML IVPush ONE (17:00)
[2019-09-26] MEDS ORDERED: SODIUM BICARBONATE 1 MEQ/ML, 50ML VIAL ONE (17:02)
[2019-09-26] MEDS ORDERED: DILTIAZEM 125 MG in SODIUM CHLORIDE 0.9% 100 ML IV SCH (17:02)
[2019-09-26] MEDS ORDERED: AMIODARONE 50 MG/ML, 3ML ONE (17:17)
[2019-09-26] MEDS ORDERED: DILTIAZEM 5 MG/ML, 5ML IV ONE (17:30)
[2019-09-26] MEDS ORDERED: AMIODARONE 360MG/200ML PREMIX ONE (17:30)
[2019-09-26] MEDS ORDERED: MIDAZOLAM 1 MG/ML, 5ML ONE (17:30)
[2019-09-26] MEDS ORDERED: AMIODARONE 50 MG/ML, 3ML IVPush ONE (17:30)
[2019-09-26] MEDS: AMIODARONE 450 MG in DEXTROSE 5% 241 ML IV PRN ×2 (17:35→19:42)
[2019-09-26] MEDS: NOREPINEPHRINE 8 MG in SODIUM CHLORIDE 0.9% 242 ML IV PRN ×2 (17:40→22:26)
[2019-09-26] MEDS ORDERED: DEXTROSE 4 GM TAB.CHEW PO PRN ×2 (18:00→21:30)
[2019-09-26] MEDS ORDERED: GLUCAGON 1 MG IM PRN ×2 (18:00→21:30)
[2019-09-26] MEDS ORDERED: VANCOMYCIN PER PHARMACY MC PRN (18:00)
[2019-09-26] MEDS ORDERED: ONDANSETRON 2MG/ML, 2ML IVPush PRN (18:00)
[2019-09-26] MEDS ORDERED: DEXTROSE 50%, 50ML SYRINGE IVPush PRN ×2 (18:00→21:30)
[2019-09-26] MEDS ORDERED: PHARMACY MAY ADJ FOR RENAL FX MC PRN (18:00)
--- NOTE | 2019-09-26 18:06 | NUR ---
LATE ENTRY: 1622 RESPIRATORY ARREST FOLLOWED BY CARDIAC ARREST, SEE CODE SHEET. PT MOVED TO TRAUMA ROOM ONCE STABLE. DIFFICULTY GETTING BP. HR IN THE 180'S. MANUAL PRESSURE AT FIRST WITH SYSTOLIC OF 183 THEN THE NEXT TIME IN THE 50'S. PT GIVEN AMIODARONE. WENT INTO [facility] TWICE AND WAS SHOCKED TWICE, ALSO ON CODE SHEET. PT MOVING AFTER DEFIB AND NO CPR NEEDED. AFTER DEFIB, OBTAINED A BP OF 53/32 STARTED ON LEVOPHED. HR DOWN TO 110 AFTER DEFIB. CURRENTLY HR BACK UP TO 170. IR AT BEDSIDE TO PLACE A TEMP TEMPORARY DIALYSIS CATH. FISTULA IN RIGHT ARM WITHOUT THRILL OR BRUIT. CURRENTLY PT HAS IV IN LEFT FOOT, 24G AND IO IN RIGHT LEG.
--- NOTE | 2019-09-26 18:13 | NUR ---
REPORT TO MICHELLE MUNGUIA, PLAN OF CARE DISCUSSED.
--- NOTE | 2019-09-26 18:39 | NUR ---
FAMILY AT BS, SON AND DAUGHTER IN LAW. SON NAME IS WILL [phone]
[2019-09-26 19:05] VITALS: BP 104/34
[2019-09-26 19:07] LABS: TROPONIN I 0.109 ng/mL (0.000-0.045)
[2019-09-26] MEDS ORDERED: ALBUTEROL/IPRATROPIUM 2.5MG/0.5MG, 3 ML ONE (19:08)
[2019-09-26] MEDS ORDERED: VANCOMYCIN 1,500 MG in SODIUM CHLORIDE 0.9% 250 ML IV ONE (19:30)
[2019-09-26] MEDS ORDERED: FILTER 0.22 MICRON IV PRN (19:30)
[2019-09-26] MEDS ORDERED: PHARMACOKINETIC MONITORING MC PRN (19:30)
[2019-09-26] MEDS ORDERED: PHARMACOKINETIC CONSULTATION MC ONE (19:30)
[2019-09-26] MEDS: SODIUM CHLORIDE 0.9% 1,000 ML IV SCH (19:49)
[2019-09-26] MEDS: PIPERACILLIN/TAZO 2.25 GM in SODIUM CHLORIDE 0.9% 50 ML IV SCH (19:50)
[2019-09-26] MEDS: HEPARIN 5,000 UNITS/ML, 1ML SQ SCH (20:33)
[2019-09-26] MEDS ORDERED: SODIUM CHLORIDE FLUSH 10ML SYR IVF SCH (21:00)
[2019-09-26] MEDS ORDERED: INSULIN LISPRO 100 UNITS/ML, PEN SQ-INSULIN SCH (21:00)
[2019-09-26] MEDS ORDERED: LIDOCAINE-MPF 1%, 2ML ENDO PRN (21:30)
[2019-09-26] MEDS ORDERED: SENNA/DOCUSATE TABLET NG PRN (21:30)
[2019-09-26] MEDS ORDERED: BISACODYL 10 MG SUPP PR PRN (21:30)
[2019-09-26] MEDS ORDERED: LACTULOSE 20 GM/30 ML UDC NG PRN (21:30)
[2019-09-26] MEDS ORDERED: PHARMACY MAY ADJ FOR RENAL FX MC SCH (21:30)
[2019-09-26] MEDS ORDERED: SENNA 176 MG/5 ML ORAL SOL NG PRN (21:30)
[2019-09-26] MEDS: ALBUTEROL/IPRATROPIUM 2.5MG/0.5MG, 3 ML INLINE SCH (22:26)
[2019-09-27 00:47] LABS: TROPONIN I 0.745 ng/mL (0.000-0.045)
[2019-09-27] MEDS: PROPOFOL 100 ML IV PRN ×3 (01:05→15:04)
[2019-09-27] MEDS: FENTANYL PF 100 MCG/2ML IVPush PRN ×3 (01:11→19:41)
[2019-09-27] MEDS: ALBUTEROL/IPRATROPIUM 2.5MG/0.5MG, 3 ML INLINE SCH ×5 (02:07→18:15)
[2019-09-27] MEDS ORDERED: AMIODARONE 150 MG in DEXTROSE 5% 100 ML IV ONE (02:30)
[2019-09-27] MEDS: AMIODARONE 450 MG in DEXTROSE 5% 241 ML IV PRN ×2 (02:32→08:26)
[2019-09-27] MEDS: NOREPINEPHRINE 8 MG in SODIUM CHLORIDE 0.9% 242 ML IV PRN ×2 (02:32→07:12)
[2019-09-27 03:50] LABS: ANION GAP 15 mmol/L (5-15); CALCIUM 9.3 mg/dL (8.5-10.1); CHLORIDE 95 mmol/L (98-107); CREATININE 7.03 mg/dL (0.55-1.02)
[2019-09-27 03:55] LABS: TROPONIN I 0.969 ng/mL (0.000-0.045)
[2019-09-27] MEDS: INSULIN LISPRO 100 UNITS/ML, PEN SQ-INSULIN SCH ×3 (04:00→15:00)
[2019-09-27] MEDS: PIPERACILLIN/TAZO 2.25 GM in SODIUM CHLORIDE 0.9% 50 ML IV SCH ×2 (04:02→13:19)
[2019-09-27] MEDS: HEPARIN 5,000 UNITS/ML, 1ML SQ SCH ×2 (04:06→12:00)
[2019-09-27 04:24] LABS: MEAN CORPUSCULAR HEMOGLOBIN 27.7 pg (27.0-34.8); MEAN CORPUSCULAR HGB CONC 32.2 g/dL (32.4-35.8); MEAN CORPUSCULAR VOLUME 85.8 fL (80-100); MEAN PLATELET VOLUME 11.1 fL (7.4-10.4); PLATELET COUNT 406 x10^3/uL (130-400); RED BLOOD COUNT 4.52 x10^6/uL (3.82-5.3); RED CELL DISTRIBUTION WIDTH 15.3 % (9.6-15.2)
[2019-09-27 04:47] LABS: MD YES
[2019-09-27 04:50] LABS: <PLATELET ESTIMATE> INCREASED; ANISOCYTOSIS 1+; BAND#(MANUAL) 0.86 x10^3/uL; BANDS%(MANUAL) 4 % (0-7); BASOS#(MANUAL) 0.22 x10^3/uL (0-0.1); BASOS% (MANUAL) 1 % (0-1); LARGE PLATELETS 1+; LYMPH#(MANUAL) 0.43 x10^3/uL (1-3.4); LYMPHS% (MANUAL) 2 % (22-44); MONOS#(MANUAL) 1.94 x10^3/uL (0.3-2.7); MONOS% (MANUAL) 9 % (2-9); SEG#(MANUAL) 18.14 x10^3/uL (1.8-6.8); SEGS% (MANUAL) 84 % (42-75)
[2019-09-27 05:22] VITALS: BP 107/35
[2019-09-27] MEDS: ACETAMINOPHEN 650 MG/20.3 ML UDC NG PRN ×2 (05:23→13:56)
[2019-09-27] MEDS ORDERED: SODIUM CHLORIDE FLUSH 10ML SYR IVF SCH (09:00)
[2019-09-27] MEDS ORDERED: NOREPINEPHRINE 32 MG in SODIUM CHLORIDE 0.9% 218 ML IV PRN (09:30)
--- NOTE | 2019-09-27 11:42 | NUR ---
TF goal recs: Vital AF 1.2 @ 60 ml/hour on propofol and 65 ml/hour off propofol
[2019-09-27] MEDS: SODIUM CHLORIDE 0.9% 1,000 ML IV SCH (13:20)
[2019-09-27] MEDS ORDERED: EPINEPHRINE 10 MG in SODIUM CHLORIDE 0.9% 240 ML IV SCH (14:08)
[2019-09-27] MEDS ORDERED: EPINEPHRINE 1 MG/ML, 1ML ONE (14:10)
[2019-09-27] MEDS ORDERED: SODIUM BICARB 8.4%, 50ML SYRINGE ONE (14:20)
[2019-09-27] MEDS ORDERED: DEXTROSE 5%, 100ML ONE (14:20)
[2019-09-27] MEDS ORDERED: AMIODARONE 50 MG/ML, 3ML ONE (14:20)
[2019-09-27] MEDS ORDERED: CODE BLUE RESPONSE XX ONE (14:20)
[2019-09-27] MEDS ORDERED: MAGNESIUM SULFATE 1 GM/2 ML ONE (14:20)
[2019-09-27] MEDS ORDERED: SODIUM BICARBONATE 8.4% 150 MEQ in DEXTROSE 5% 1,000 ML IV SCH (15:00)
[2019-09-27] MEDS ORDERED: HEPARIN 25,000 UNITS/250ML PMX 250 ML ONE (15:11)
[2019-09-27] MEDS ORDERED: HEPARIN 5,000 UNITS/ML, 1ML IV PRN (15:30)
[2019-09-27] MEDS ORDERED: HEPARIN 5,000 UNITS/ML, 1ML IV ONE (15:30)
[2019-09-27] MEDS ORDERED: HEPARIN 25,000 UNITS/250ML PMX 250 ML IV PRN (15:30)
[2019-09-27] MEDS ORDERED: PHENYLEPHRINE 50 MG in SODIUM CHLORIDE 0.9% 245 ML IV PRN (16:00)
[2019-09-27] MEDS ORDERED: DEXTROSE 50%, 50ML SYRINGE IVPush ONE (16:00)
[2019-09-27] MEDS ORDERED: LEVOFLOXACIN/PMX 500MG/100ML 100 ML IV SCH (17:30)
[2019-09-27] MEDS ORDERED: LORazepam 2 MG/ML, 1ML IVPush PRN ×2 (20:00)
[2019-09-27] MEDS ORDERED: ONDANSETRON 2MG/ML, 2ML IVPush PRN (20:00)
[2019-09-27] MEDS ORDERED: SCOPOLAMINE PATCH, 1.5MG PATCH.TD72 TD SCH (20:00)
[2019-09-27] MEDS ORDERED: ATROPINE OPHTH SOLN 1%, 5ML PO PRN (20:00)
[2019-09-27] MEDS ORDERED: HYDROmorphone 1 MG/ML, 1ML INJ IVPush PRN ×2 (20:00)
[2019-09-27] MEDS ORDERED: HYDROmorphone 2 MG/ML, 1ML IVPush ONE (20:00)
[2019-09-27] MEDS ORDERED: ATORVASTATIN 80 MG TABLET PO SCH (21:00)
== END 2019-09-27 22:26 | disposition expired | DRG 871 ==
LOC: SUATTDRO 17:16 → ED 17:31 → EDIP 18:36 → CCU 19:06
PROVIDERS: ADMIT Internal Medicine; ATTEND Internal Medicine
PROC: 02HV33Z Insertion of Infusion Device into Superior Vena Cava, Percutaneous Approach (ICD-10-PCS; principal; 2019-09-26)
PROC: B548ZZA Ultrasonography of Superior Vena Cava, Guidance (ICD-10-PCS; 2019-09-26)
PROC: 5A1D70Z Performance of Urinary Filtration, Intermittent, Less than 6 Hours Per Day (ICD-10-PCS; 2019-09-26)
PROC: 5A1945Z Respiratory Ventilation, 24-96 Consecutive Hours (ICD-10-PCS; 2019-09-26)
PROC: 0BH17EZ Insertion of Endotracheal Airway into Trachea, Via Natural or Artificial Opening (ICD-10-PCS; 2019-09-26)
PROC: 5A2204Z Restoration of Cardiac Rhythm, Single (ICD-10-PCS; 2019-09-26)
PROC: 5A12012 Performance of Cardiac Output, Single, Manual (ICD-10-PCS; 2019-09-26)
PROC: 04HY32Z Insertion of Monitoring Device into Lower Artery, Percutaneous Approach (ICD-10-PCS; 2019-09-27)
DX: A41.9 Sepsis, unspecified organism (principal); R65.21 Severe sepsis with septic shock; J96.21 Acute and chronic respiratory failure with hypoxia; N18.6 End stage renal disease; E43 Unspecified severe protein-calorie malnutrition; J15.9 Unspecified bacterial pneumonia; E87.1 Hypo-osmolality and hyponatremia; I47.2 Ventricular tachycardia; D68.69 Other thrombophilia; I13.2 Hypertensive heart and chronic kidney disease with heart failure and with stage 5 chronic kidney disease, or end stage renal disease; I50.32 Chronic diastolic (congestive) heart failure; J44.0 Chronic obstructive pulmonary disease with (acute) lower respiratory infection; Z16.11 Resistance to penicillins; Z99.11 Dependence on respirator [ventilator] status; I49.01 Ventricular fibrillation; I48.0 Paroxysmal atrial fibrillation; Z99.2 Dependence on renal dialysis; E87.5 Hyperkalemia; Z88.6 Allergy status to analgesic agent; Z88.5 Allergy status to narcotic agent; Z88.8 Allergy status to other drugs, medicaments and biological substances; D63.1 Anemia in chronic kidney disease; E11.22 Type 2 diabetes mellitus with diabetic chronic kidney disease; E66.9 Obesity, unspecified; Z68.31 Body mass index [BMI] 31.0-31.9, adult; E78.5 Hyperlipidemia, unspecified; I27.20 Pulmonary hypertension, unspecified; I46.2 Cardiac arrest due to underlying cardiac condition; K21.9 Gastro-esophageal reflux disease without esophagitis; N25.0 Renal osteodystrophy; Z86.73 Personal history of transient ischemic attack (TIA), and cerebral infarction without residual deficits; Z87.891 Personal history of nicotine dependence; Z99.81 Dependence on supplemental oxygen
CPT/HCPCS: 31500; 36415; 36556; 36600; 71045; 77001; 80047; 80048; 82040; 82533; 82803; 82962; 83605; 83735; 83880; 84478; 84484; 85025; 85520; 86705; 86706; 87040; 87070; 87081; 87205; 87340; 87400; 90935; 92960; 93005; 93970; 94002; 94003; 94640; 96365; 96375; C1894; C8929; G0378; J0456; J0461; J0696; J1170; J1644; J1956; J2250; J2543; J2704; J3010; J3370; J3475; J7060; J7620; Q9957; C1751; J0282; J1642; J1815; J2060; J2370; J7030; J7050